=== PATIENT | female | born 1985 | race Two or more races ===

== ENCOUNTER → 2025-03-17 | Emergency (ER) | payer OTHER ==
[2025-03-16 01:16] LABS: HEMATOCRIT 38.6 % (36.0-45.00); HEMOGLOBIN 12.7 g/dL (12.0-15.00); MEAN CELL VOLUME 92.2 fL (80.00-100.00); MEAN CORPUSCULAR HEMOGLOBIN 30.4 pg (27.00-32.0); PLATELET COUNT 253 K/uL (150-450); RED BLOOD COUNT 4.19 M/uL (4.00-6.00); RED CELL DISTRIBUTION WIDTH 13.7 % (11.5-14.5)
[2025-03-16 01:30] LABS: CALCIUM 8.6 mg/dL (8.5-10.1); CREATININE SERUM 0.64 mg/dL (0.55-1.02); GFR 103.31; POTASSIUM 3.98 mEq/L (3.5-5.1)
[~2025-03-17] VITALS: Ht 160 cm; Wt 65.8 kg
[~2025-03-17] MED LIST: HYDROXYZINE PAM50 MG PO; LEVOTHYROXINE SODIUM 88 MCG TABLET PO STA; SYNTHROID88 MCG PO; hydrOXYzine PAMOATE 50 MG CAPSULE PO STA
== END | disposition home or self-care (01) ==
LOC: ER 03-15 23:46
PROVIDERS: General Practice
DX: R00.2 Palpitations (principal); F41.9 Anxiety disorder, unspecified; E03.9 Hypothyroidism, unspecified